=== PATIENT | male | born 1990 | race Caucasian/White ===

== ENCOUNTER 2024-03-05 19:22 | Emergency (ER) | payer BC ==
[~2024-03-05] VITALS: Ht 185.4 cm; Wt 138.3 kg
[~2024-03-05 19:22] MED LIST: Augmentin 875-1 EACH PO
[2024-03-05 19:27] VITALS: BP 171/102
== END 2024-03-05 22:05 | disposition home or self-care (01) ==
LOC: ER 19:22
DX: F41.0 Panic disorder [episodic paroxysmal anxiety] (principal); I10 Essential (primary) hypertension; I49.3 Ventricular premature depolarization; F17.210 Nicotine dependence, cigarettes, uncomplicated
CPT/HCPCS: 93005; 93010; 99284-25

== ENCOUNTER 2024-04-14 02:29 | Emergency (ER) | payer BC ==
[~2024-04-14] VITALS: Ht 185.4 cm; Wt 136.1 kg
[2024-04-14 03:15] LABS: Source, Urine Clean Catch
[2024-04-14 03:21] LABS: Appearance, Urine Clear (Clear); Bilirubin, Urine Neg (Neg); Blood, Urine Neg (Neg); Color, Urine Yellow (P-Yellow); Glucose Qualitative, Urine Neg (Neg); Ketones, Urine Neg (Neg); Leukocyte Esterase, Urine Neg (Neg); Nitrite, Urine Neg (Neg); Protein, Urine Neg (Neg); Urobilinogen, Urine NORM (Normal)
[2024-04-14 05:48] VITALS: BP 181/135
[2024-04-14] MEDS ORDERED: Doxycycline Hyclate 100 MG TAB PO ONE (06:00)
[2024-04-14] MEDS ORDERED: CefTRIAXone 500 MG Vial IM ONE (06:00)
[2024-04-14] MEDS ORDERED: DOXYCYCLINE HY100 M1 PO (06:09)
[2024-04-14 10:12] LABS: Chlamydia Trachomatis Urine NOT DETECTED (NOT DETECT); Neisseria Gonorrhoea Urine NOT DETECTED (NOT DETECT)
== END 2024-04-14 06:53 | disposition home or self-care (01) ==
LOC: ER 02:29
PROVIDERS: Emergency Medicine; Student in an Organized Health Care Education/Training Program
DX: R30.0 Dysuria (principal); F17.200 Nicotine dependence, unspecified, uncomplicated; I10 Essential (primary) hypertension
CPT/HCPCS: 81003; 96372; 99283-25; A9270; J0696

== ENCOUNTER 2025-05-14 03:10 | Emergency (ER) | payer OTHER, BC ==
[~2025-05-14] VITALS: Ht 185.4 cm; Wt 154.2 kg
[~2025-05-14 03:10] MED LIST changes: +ALPR.5 PO; +DOXYCYCLINE HY100 M1 PO
[2025-05-14 04:18] VITALS: BP 159/115
[2025-05-14] MEDS ORDERED: OMEP20ER PO (04:22)
[2025-05-14] MEDS ORDERED: LOSA50 PO (04:23)
[2025-05-14] MEDS ORDERED: BUSPIRONE HCL10 M6 PO (04:23)
[2025-05-14] MEDS ORDERED: CLON.5 PO (04:24)
== END 2025-05-14 06:01 | disposition home or self-care (01) ==
LOC: ER 03:10
DX: K43.9 Ventral hernia without obstruction or gangrene (principal); I10 Essential (primary) hypertension; K21.9 Gastro-esophageal reflux disease without esophagitis; F17.200 Nicotine dependence, unspecified, uncomplicated
CPT/HCPCS: 99283